=== PATIENT | female | born 1990 | race Caucasian/White ===

== ENCOUNTER 2018-08-05 18:03 | Emergency (ER) | payer MEDICAID ==
[~2018-08-05] VITALS: Ht 162.6 cm; Wt 79.7 kg
[2018-08-05 18:10] VITALS: BP 124/72
== END 2018-08-05 19:15 | disposition home or self-care (01) ==
LOC: ER 18:05
DX: S01.01XD Laceration without foreign body of scalp, subsequent encounter (principal); Z48.02 Encounter for removal of sutures; X58.XXXD Exposure to other specified factors, subsequent encounter
CPT/HCPCS: 99281